=== PATIENT | female | born 1960 | race Caucasian/White ===

== ENCOUNTER 2017-04-16 07:05 | Day surgery (SDC) | payer BC ==
[2017-04-16] MEDS ORDERED: Propofol 200 MG/20 ML SDV ONE (07:33)
[2017-04-16] MEDS ORDERED: Midazolam 1 MG/ML 2 ML SDV ONE (07:33)
[2017-04-16] MEDS ORDERED: fentaNYL 100 MCG/2 ML SDV ONE (07:33)
[2017-04-16] MEDS ORDERED: Lactated Ringers 1,000 ML IV SCH (07:45)
[2017-04-16 10:46] VITALS: BP 122/68
--- NOTE | 2017-04-16 14:13 | OR ---
DATE OF PROCEDURE: 04/16/2017 PREOPERATIVE DIAGNOSIS: History of ulcerative colitis. POSTOPERATIVE DIAGNOSIS: Unremarkable colonoscopy and history of ulcerative colitis. PROCEDURE: Colonoscopy to the cecum. SURGEON: Ward Pedro MD ANESTHESIA: IV anesthesia with monitored anesthesia care. INDICATION: This 56-year-old white female is referred for a colonoscopy because of a history of ulcerative colitis. Her last colonoscopic exam was in 2007. I counseled her for the procedure including risks and alternatives and she gave her informed consent to proceed. PROCEDURE IN DETAILS: The patient was placed in the left lateral decubitus position. IV anesthesia was administered by the Anesthesia Service. Time-out was held. A rectal exam was performed, which was unremarkable. The flexible video Olympus colonoscope was introduced through her anus, up her rectum, and out her colon all way to the cecum. Once the cecum was reached, the scope was slowly withdrawn, examining the mucosa throughout. No mucosal abnormalities were noted. The scope was retroflexed in the rectum with the distal rectum appearing unremarkable. The scope was straightened and removed. She tolerated the procedure well. Ward Pedro MD /[id number]
== END 2017-04-16 09:25 | disposition home or self-care (01) ==
LOC: JP.SDS 07:05
PROVIDERS: ATTEND Surgery
DX: Z12.11 Encounter for screening for malignant neoplasm of colon (principal); K51.90 Ulcerative colitis, unspecified, without complications; E78.00 Pure hypercholesterolemia, unspecified; Z88.8 Allergy status to other drugs, medicaments and biological substances
CPT/HCPCS: 45378; J2250; J2704; J3010

== ENCOUNTER 2022-06-13 07:47 | Day surgery (SDC) | payer BC, OTHER ==
[~2022-06-13 07:47] MED LIST: Midazolam 1 MG/ML 2 ML SDV ONE; Propofol 200 MG/20 ML SDV ONE; fentaNYL 100 MCG/2 ML SDV ONE
[2022-06-13] MEDS ORDERED: Dextrose 5%-Lactated Ringers 1,000 ML IV SCH (08:30)
[2022-06-13 11:56] VITALS: BP 133/74; PULSE 56
== END 2022-06-13 11:50 | disposition home or self-care (01) ==
LOC: JP.SDS 07:47
PROVIDERS: ATTEND Surgery
DX: K51.90 Ulcerative colitis, unspecified, without complications (principal); K64.9 Unspecified hemorrhoids; E78.5 Hyperlipidemia, unspecified; Z88.8 Allergy status to other drugs, medicaments and biological substances
CPT/HCPCS: 45380; 88305; J2250; J2704; J3010; J7121

== ENCOUNTER 2024-07-08 06:24 | Day surgery (SDC) | payer OTHER ==
[2024-07-08] MEDS: Sodium Chloride 0.9% 1,000 ML IV SCH (07:22)
[2024-07-08] MEDS ORDERED: Propofol 200 MG/20 ML SDV ONE (07:32)
[2024-07-08] MEDS ORDERED: fentaNYL 50 MCG/ML SDV ONE (07:32)
[2024-07-08] MEDS ORDERED: Midazolam 1 MG/ML 2 ML SDV ONE (07:32)
[2024-07-08 09:28] VITALS: BP 146/74; PULSE 81
== END 2024-07-08 09:40 | disposition home or self-care (01) ==
LOC: JP.SDS 06:24
PROVIDERS: ATTEND Surgery
DX: K63.5 Polyp of colon (principal); K92.2 Gastrointestinal hemorrhage, unspecified; K51.90 Ulcerative colitis, unspecified, without complications; E78.5 Hyperlipidemia, unspecified; Z88.8 Allergy status to other drugs, medicaments and biological substances
CPT/HCPCS: 00811-QZ; 88305; J2250; J2704; J3010; J7030